=== PATIENT | male | born 1975 | race Caucasian/White ===

== ENCOUNTER → 2022-02-05 | Outpatient (CLI) | payer BC ==
[~2022-02-05] MED LIST: ALEVE 220MG220 MG PO; ANTI-DIARRHEAL2 MG PO; BENICAR 20MG TA20 MG PO; ELIQUIS 5MG PO; HCTZ 25MG TAB25 MG PO; NEURONTIN100 MG/CAP PO; OXYGEN NASAL.CANN; PRIL40 PO; RT ADVAIR 228 DISKUS IH; TRICOR145 MG PO; TYLENOL 500MG500 MG PO
== END ==
LOC: COL.RAD 10:24
DX: I26.99 Other pulmonary embolism without acute cor pulmonale (principal)
CPT/HCPCS: Q9967